=== PATIENT | male | born 1940 | race Caucasian/White ===

== ENCOUNTER 2016-07-13 18:17 | Observation (INO) | payer OTHER, BC ==
--- NOTE | 2016-07-13 18:04 | EDPHY ---
H & P Constitutional: Initial Vital Signs Temperature (C) 37.1 C 07/13/16 18:17 Heart Rate 65 07/13/16 18:17 Respiratory Rate 18 07/13/16 18:17 Blood Pressure 198/99 H 07/13/16 18:17 O2 Sat (%) 100 07/13/16 18:17 O2 Delivery Mode Room Air Allergies/Adverse Reactions: fluticasone propionate [From Flonase] Allergy (Intermediate, Verified 08/19/14 19:01) Rash vancomycin Allergy (Intermediate, Verified 08/19/14 19:01) Rash Home Medications: Medication Instructions Recorded Acetaminophen [Tylenol 325mg (*)] 650 mg PO HS PRN 04/26/14 Acetaminophen/Codeine 300/30Mg 1 each PO HS PRN 04/26/14 [Tylenol #3 (*)] Ascorbic Acid [Vitamin C 500 mg 2,000 mg PO DAILY 04/26/14 (*)] Budesonide 90 Mcg INH [Pulmicort 1 puffs IH DAILY 04/26/14 90 Mcg Flexhaler (*)] Budesonide [Rhinocort Aqua] 1 sprays EACHNARE DAILY 04/26/14 Cholecalciferol Vit D3 [Vitamin D3 2,000 units PO DAILY 04/26/14 (*)] Medical Decision Making ED Course/Re-evaluation: CHIEF COMPLAINT: Slurred speech, headache. HISTORY OF PRESENT ILLNESS: The patient is a 76-year-old male who presents after an episode of slurred speech that began at 1715. The episode lasted 20 minutes then resolved. He is still complaining of mild intermittent word- finding difficulty. He admits associated 6/10 headache that began after the episode of slurred speech. He is alert and oriented x 4. He has no history of similar symptoms. He denies numbness, weakness, paresthesias, or other complaints. He has no other complaints at this time. REVIEW OF SYSTEMS: A 10 point review of systems was performed and is negative with the exception of the elements mentioned in the history of present illness. PHYSICAL EXAM: HR, BP, O2 Sat, RR. Temp noted General Appearance: Alert, well hydrated, appropriate, and non-toxic appearing. Head: Atraumatic without scalp tenderness or obvious injury Eyes: Pupils equal, round, reactive to light and accommodation, EOMI, no trauma , no injection. Ears: Clear bilaterally, no perforation, normal landmarks Nose: Atraumatic, no rhinorrhea, clear. Throat: There is no erythema or exudates, no lesions, normal tonsils, mucus membranes moist. Neck: Supple, 2+ carotid upstroke, nontender, no lymphadenopathy. Respiratory: No retractions, no distress, no wheezes, and no accessory muscle use. Lungs are clear to auscultation bilaterally. Cardiovascular: Regular rate and rhythm, no murmurs, rubs, or gallops. Bilateral carotid, radial, dorsalis pedis, and posterior tibial pulses intact. Good capillary refill all extremities. Gastrointestinal: Abdomen is soft, nontender, non-distended, no masses, no rebound, no guarding, no peritoneal signs. Musculoskeletal: Normal active ROM of all extremities, atraumatic. Neurological: Alert, appropriate, and interactive. The patient has normal DTRs and non-focal cranial nerves, motor, sensory, and cerebellar exam. Skin: No rashes, good turgor, no nodules on palpation. Past medical history:Calcaneus fracture. Past surgical history: Family history:Non-contributory. Social history:Lives in [place]. DIAGNOSTICS/PROCEDURES/CRITICAL CARE TIME: Study: MRI of the: Brain Indication: Neurologic Results: No acute process. The study was read by the radiologist, Dr. Talbert. I viewed the images myself on the PACS system. The 12 lead EKG was interpreted by myself. See hard copy and/or "tracemaster" electronic copy for interpretation. Sinus rhythm, no ichemic changes. DIFFERENTIAL DIAGNOSIS: The differential diagnosis for the patient includes but MEDICAL DECISION MAKING: I met EMS on arrival and obtained a report from the sheriffs officer. This 76-year-old male had a 20-minute episode of slurred speech at 1715 today that was noticed by a friend. He has no ongoing slurred speech but still has occasional word- finding difficulty. All of these symptoms are unusual for him. We will obtain lab work and a brain MRI without contrast and EKG. 1829: Consulted with Dr. Muniz, hospitalist. He accepts admission. 2011: On return from US and MRI the patient has a large headache. 10mg IV Reglan administered for headache. Patient's blood pressure 200/105. 1inch nitro paste administered. 2042: Reassessed patient. He is now anxious and tachypneic. 1mg Ativan administered for anxiety. - Data Points Laboratory Results: Laboratory Results 07/13/16 18:20 07/13/16 18:20 Sodium 136 mEq/L mEq/L (134-144) Potassium 4.8 mEq/L mEq/L (3.5-5.2) Chloride 101 mEq/L mEq/L (97-110) Carbon Dioxide 25 mEq/l mEq/l (22-31) Anion Gap 10 mEq/L mEq/L (8-16) BUN 14 mg/dL mg/dL (7-23) Creatinine 0.9 mg/dL mg/dL (0.7-1.3) Estimated GFR > 60 Glucose 83 mg/dL mg/dL (70-100) Calcium 9.7 mg/dL mg/dL (8.5-10.4) Troponin I < 0.012 ng/mL ng/mL (0-0.034) Medications Given: Discontinued Medications Ketorolac Tromethamine (Toradol) 30 mg IVP EDNOW ONE Stop: 07/13/16 20:54 Last Admin: 07/13/16 21:03 Dose: 30 mg Lorazepam (Ativan Injection) 1 mg IVP EDNOW ONE Stop: 07/13/16 20:43 Last Admin: 07/13/16 20:53 Dose: 1 mg Metoclopramide HCl (Reglan Injection) 10 mg IVP EDNOW ONE Stop: 07/13/16 20:13 Last Admin: 07/13/16 20:27 Dose: 10 mg Nitroglycerin (Nitro-Bid 2%) 1 inch TP EDNOW ONE Stop: 07/13/16 20:22 Last Admin: 07/13/16 20:36 Dose: 1 inch Departure - Departure Disposition: [facility] Inpatient Acute Clinical Impression: TIA (transient ischemic attack) Qualifiers: Transient cerebral ischemia type: unspecified Qualified Code(s): G45.9 - Transient cerebral ischemic attack, unspecified Condition: Fair Report Scribed for: Sy Galarza Report Scribed by: Alessandro Robin Date of Report: 07/13/16 Time of Report: 18:21
--- NOTE | 2016-07-13 18:29 | CPEKG ---
Heart Rate: 63 RR Interval: 952 P-R Interval: 204 QRSD Interval: 90 QT Interval: 412 QTC Interval: 422 P Bruno: 62 QRS Bruno: 41 T Wave Bruno: 55 EKG Severity - NORMAL ECG - EKG Impression: SINUS RHYTHM Electronically Signed By: Sy Galarza 13-Jul-2016 22:11:09
[2016-07-13 18:48] LABS: ANION GAP 10 mEq/L (8-16); CALCIUM 9.7 mg/dL (8.5-10.4); CARBON DIOXIDE 25 mEq/l (22-31); CHLORIDE 101 mEq/L (97-110); CREATININE 0.9 mg/dL (0.7-1.3); GLOMERULAR FILTRATION RATE > 60; GLUCOSE 83 mg/dL (70-100); POTASSIUM 4.8 mEq/L (3.5-5.2); SODIUM 136 mEq/L (134-144)
[2016-07-13 18:48] LABS: % IMMATURE GRANULYOCYTES 0.2 % (0.0-1.1); ABSOLUTE IMMATURE GRANULOCYTES 0.02 10^3/uL (0.00-0.10); ADD DIFF? NO; ADD MORPH? NO; ADD SCAN? NO; ATYPICAL LYMPHOCYTE FLAG 10 (0-99); FRAGMENT RBC FLAG 0 (0-99); HEMATOCRIT 44.2 % (40.0-51.0); HEMOGLOBIN 15.3 g/dL (13.7-17.5); LEFT SHIFT FLG 0 (0-99); LIPEMIA HEMOLYSIS FLAG 90 (0-99); MEAN CELL HEMOGLOBIN 34.2 pg (27.9-34.1); MEAN CELL HEMOGLOBIN CONCENTR. 34.6 g/dL (32.4-36.7); MEAN CELL VOLUME 98.7 fL (81.5-99.8); MEAN PLATELET VOLUME 9.2 fL (8.7-11.7); PLATELET CLUMPS FLAG 50 (0-99); PLATELET COUNT 220 10^3/uL (150-400); RED BLOOD CELL COUNT 4.48 10^6/uL (4.40-6.38); RED CELL DISTRIBUTION WIDTH 12.8 % (11.5-15.2)
[2016-07-13 19:00] LABS: TROPONIN I < 0.012 ng/mL (0-0.034)
[2016-07-13 19:01] LABS: INR 1.05 (0.83-1.16); PROTIME(PATIENT) 13.6 SEC (12.0-15.0)
[2016-07-13] MEDS ORDERED: LABETALOL HCL 5 MG/ML 20 ML MDV IVP PRN (19:14)
[2016-07-13] MEDS ORDERED: ONDANSETRON 4 MG/2 ML VIAL IVP PRN (19:17)
[2016-07-13] MEDS ORDERED: oxyCODONE IR 5 MG TAB PO PRN (19:17)
[2016-07-13] MEDS ORDERED: PROMETHAZINE HCL 25 MG/ML INJ IVP PRN (19:17)
--- NOTE | 2016-07-13 19:36 | GHP ---
DATE OF ADMISSION: 07/13/2016 CHIEF COMPLAINT: Slurred speech. HISTORY OF PRESENT ILLNESS: This is a 76-year-old male who presented to the emergency department af ter his noticed that his speech was slurred at 5:15 today. The patient was talking to his frie nd on the phone when his speech became slurred, and it lasted for 10-15 minutes. His did not n otice any facial asymmetry or any other focal neurologic deficits such as weakness. Upon presenting to the emergency department, the patient states he feels much better but does have a headache which he describes as a sharp stabbing pain over his bilateral temples. He denies having a history of headaches. He denies any substance use prior to this incident today. The patient did see an orthopedic surgeon earlier today where he was diagnosed with a right calcanea l fracture and was placed in a walking boot. PAST MEDICAL HISTORY: 1. Asthma. 2. Sinus disease. PAST SURGICAL HISTORY: 1. Right total hip arthroplasty. 2. 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 HOME MEDICATIONS: Reviewed, refer to [email or web address] for details. ALLERGIES: Vancomycin and fluticasone. SOCIAL HISTORY: The patient lives in [place] with his . He denies any alcohol, tobacco or illi cit drug use. FAMILY HISTORY: Reviewed and noncontributory. REVIEW OF SYSTEMS: A comprehensive 10-point review of systems was done and is negative except for a s mentioned in the HPI. PHYSICAL EXAMINATION: VITAL SIGNS: Blood pressure 198/99, pulse of 65, respiratory rate 18, O2 sat 100% on room air. Temperature afebrile. GENERAL: No acute distress. HEAD: Normocephalic, atrau matic. Eyes are PERRLA. Sclerae anicteric. MOUTH: Moist mucous membranes. NECK: Supple. No ly mphadenopathy. CARDIOVASCULAR: S1-S2, no murmurs, rubs, clicks, gallops, or JVD. No lower extremi ty edema. No carotid bruits. PULMONARY: Lungs are clear. No wheezes, rales, or rhonchi. ABDOMEN : Soft, nontender, nondistended. No guarding or rebound tenderness. Normoactive bowel sounds. EX TREMITIES: No clubbing or cyanosis. NEURO: Cranial nerves 2-12 grossly intact. No focal motor or sensory deficits. There is no pronator drift. Speech is fluent. Tongue protrusion is midline. M uscle strength 5/5 bilateral upper extremity flexion, extension, and curriculum director strength. Muscle strength 5/5 in flexion extension at the hip. The patient is in a walking boot on the right. DIAGNOSTICS: WBC is 8.6, hemoglobin 15.3, hematocrit 44.2, platelets 220. Sodium 136, potassium 4. 8, chloride 101, CO2 25, BUN 14, creatinine 0.9, glucose 83. Troponin less than 0.012. EKG which I visualized and personally interpreted shows sinus rhythm, rate 63 beats per minute, no a cute ischemic changes. ASSESSMENT AND PLAN: This is a 76-year-old male presenting with: 1. Resolved slurred speech, possibly due to transient ischemic attack versus hypertensive encephalo radha. 2. Elevated blood pressure without a history of hypertension, concerning for hypertensive urgency. 3. Recently diagnosed right calcaneal fracture. PLAN: 1. Place on observation. 2. Will treat hypertension with 1 dose of IV labetalol, and will start a low dose of lisinopril. 3. TIA workup with echocardiogram and carotid Dopplers. 4. Stat noncontrast head CT to evaluate bleeding in the setting of headache and speech difficulties . 5. Neurology consultation interpretation for surgery. /[id number]/MODL
[2016-07-13] MEDS ORDERED: METOCLOPRAMIDE 10 MG/2 ML VIAL IVP ONE (20:12)
[2016-07-13] MEDS ORDERED: NITROGLYCERIN 2% 1 GM PACKET TP ONE (20:21)
[2016-07-13] MEDS ORDERED: LORazepam 2 MG/ML INJ IVP ONE (20:42)
[2016-07-13] MEDS ORDERED: LORazepam 2 MG/ML INJ ONE (20:43)
[2016-07-13] MEDS ORDERED: KETOROLAC 30 MG/1 ML SDV IVP ONE (20:53)
[2016-07-13] MEDS ORDERED: HYDROmorphONE/DILAUDID 2 MG/ML INJ IVP ONE (20:54)
[2016-07-13] MEDS ORDERED: ACETAMINOPHEN 325 MG TAB PO PRN (20:59)
[2016-07-13] MEDS ORDERED: ACETAMINOPHEN/CODEINE 300/30MG TAB PO PRN (20:59)
[2016-07-13] MEDS: LISINOPRIL 2.5 MG TAB PO SCH (22:29)
[2016-07-14] MEDS: ACETAMINOPHEN 325 MG TAB PO PRN ×3 (03:43→09:45)
[2016-07-14 06:08] LABS: CHOLESTEROL 152 mg/dL (140-220); CHOLESTEROL/HDL RATIO 3.71 RATIO (1.00-4.97); HIGH DENSITY LIPOPROTEIN 41 mg/dL (40-65); LDL/HDL RATIO 2.24 RATIO (1.00-3.64); LOW DENSITY LIPOPROTEIN 92 mg/dL (80-100); NON-HIGH DENSITY LIPOPROTEIN 111 mg/dL (90-129); TRIGLYCERIDE 98 mg/dL (40-150); VERY LOW DENSITY LIPOPROTEINS 19 mg/dL (8-25)
[2016-07-14 07:22] VITALS: BP 89/68; TEMP 98.4; O2SAT 94
[2016-07-14] MEDS ORDERED: BUDESONIDE EACHNARE SCH (09:00)
[2016-07-14] MEDS ORDERED: ASCORBIC ACID 500 MG TAB PO SCH (09:00)
[2016-07-14] MEDS ORDERED: CHOLECALCIFEROL VIT D3 2,000 UNITS TAB/CAP PO SCH (09:00)
[2016-07-14] MEDS ORDERED: BUDESONIDE 90 MCG MDI IH SCH (09:00)
[2016-07-14] MEDS: LISINOPRIL 2.5 MG TAB PO SCH ×2 (09:40→09:45)
[2016-07-14 10:04] VITALS: PULSE 75; RESP 16
--- NOTE | 2016-07-14 10:20 | PDCONSULT ---
[employer] Note: HOSPITAL NEUROLOGY CONSULT REQUESTING: Denzel Muniz DO REASON: speech disturbance HPI: This is a 76-year-old right-handed gentleman who presents for evaluation of speech disturbance. He is here with his who helps aid in the history. Yesterday evening, the patient was telephone a friend cancel some plans regarding a trip they were about to take. He had to cancel the trip due to a right foot fracture. Patient was not particularly aware of any disturbance, however, the patient's noted that the patient was having trouble getting words out, specifically, seems like he was having trouble remembering specific details about their upcoming trip. There was no slurring of the speech, word substitutions, telegraphic type speech, stuttering. He had no facial droop, extremity weakness, sensory loss, gait disturbance or visual disturbance. EMS was summoned and the patient was noted to have markedly elevated blood pressure with systolics in the 190s. He was also noting by temporal throbbing/ stabbing headache. He was brought to our emergency department where his blood pressure was treated and reduced. Since his admission, his has noted the patient has had difficulty remembering details of their trip. On our exam, the patient does have some periods where he pulses in. He states he can't think of the details of what he wants to say. There has been no indication of any garbled or nonsensical speech. He has no prior history of stroke or TIA. He does have a prior history of hyperlipidemia for which he was previously taking statins but this was discontinued recently. He has no history of hypertension or diabetes. No smoking. ROS: As per the HPI, otherwise a complete 12 point ROS was performed and is negative ALLERGIES AND MEDS: As recorded in the EMR - reviewed and reconciled PFSH: As per the intake H&P by Dr. Muniz from 07/13/16 EXAM: GEN: WDWN laying in NAD - RLE casting boot in place HEENT: NCAT, sclera anicteric, conjunctiva not injected, MMM, oropharynx clear, no scalp tenderness NECK: supple, nontender, no meningismus CV: RRR s1 s2 wo m/r/c/g. Carotid pulses 2+ wo bruit NEURO: MS: awake, alert, oriented to all spheres. Speech nondysarthric. No language disturbance. Follows commands. Attends to both sides. Recent/remote memory grossly intact. Mood euthymic. Good fund of knowledge. CN: pupils 3mm round and reactive. Fundi with sharp discs. VFF. Primary gaze centered. Full ocular motility. Facial sensation preserved. Face symmetric. Hearing grossly intact to finger rub. Palatoglossal movements intact. Shoulder shrug and head turn strong. MOTOR: normal bulk/tone. No adventitial movements. Full power throughout, with exception of right foot which could not be tested due to casting boot. SENSORY: intact to all modalities throughout. No extinction. COORD: no ataxia FN/HS. Aicha preserved. Romberg neg. REFLEX: left plantar down - did not test right due to foot casting boot. No clonus. DTRS 2/4. GAIT: Deferred to PT safety evaluation - RLE in casting boot with fracture DATA REVIEW: Labs reviewed in EMR PERSONALLY INTERPRETED RESULTS AND DATA: MRI brain without contrast shows some mild scattered punctate areas of periventricular and subcortical T2 FLAIR hyperintensities likely reflective of chronic microvascular ischemic change. No acute ischemic changes noted. Carotid Doppler shows trace left carotid bulb plaque, no significant hemodynamic stenosis IMPRESSION AND RECOMMENDATIONS: // EPISODIC MEMORY IMPAIRMENT // POSSIBLE HTN EMERGENCY Patient with abrupt onset episodic speech disturbance since yesterday which actually seems to be more difficulty recalling information then producing language. Given the headache, it could have been a more global cerebral dysfunction related to his markedly elevated blood pressures. However, there does remain a possibility that this is the 1st sign of a primary neurodegenerative process. There is no evidence of stroke on his MRI. I have a low suspicion for TIA. Regardless, given the severe hypertension and evidence of chronic microvascular ischemic changes on MRI, I would recommend institution of a daily aspirin 81 mg. Goal of normotension as managed by the primary team and long-term by his primary care provider. I do think he should go back on a statin given his previous history of hyperlipidemia which is being treated with statin medication and now given his hypertension/vascular risk. If he continues to have difficulty figuring out what he wants to say, i.e. thought production, he can follow up in Neurology Clinic for further evaluation.
--- NOTE | 2016-07-14 13:32 | HOSPPROG ---
Hospitalist Progress Note Assessment/Plan: Patient is a 76 y/o male who presented to the ER with slurred speech/ he was recently diagnosed w a right calcaneal fracture and is in a walking boot. Today is my first encounter with the patient, chart reviewed. *Slurred speech/poss more difficulty recalling information/ memory loss -no other focal deficits were noted -MRI shows no acute ischemic changes -doppler shows trace left carotid bulb plaque -neurology recommending an asa daily -patient had been on statin therapy in the past/ will resume -reviewed telemetry monitoring/ sinus rhythm -could have the beginnings of dementia/ states he has been having memory loss and is concerned *htn -now hypotensive/ started on lisinopril -reviewed his care with Dr Corcoran, his PCP/ patient has been consistently normotensive -will not dc on any medication *recent right calcanel fx/ walking boot -further f/u with ortho *alcohol use -drinks a few glasses of wine nightly -encouraged him to cut back *Plan: dc home after I evaluate echo and it is stable/ bp needs to be better prior to dc Subjective: Serafin has no complaints/feeling well. Objective: Vital Signs Temp Pulse Resp BP Pulse Ox 36.9 C 75 16 89/68 L 94 07/14/16 07:19 07/14/16 09:40 07/14/16 09:40 07/14/16 09:45 07/14/16 09:40 Laboratory Results 07/13/16 18:37 07/13/16 07/14/16 07/15/16 05:59 05:59 05:59 Intake Total 150 Balance 150 PT 13.6 SEC (12.0-15.0) 07/13/16 18:37 INR 1.05 (0.83-1.16) 07/13/16 18:37 - Physical Exam Constitutional: no apparent distress, appears nourished, not in pain Eyes: PERRL Ears, Nose, Mouth, Throat: hearing normal Cardiovascular: regular rate and rhythym Respiratory: no respiratory distress Gastrointestinal: normoactive bowel sounds Skin: warm, normal color Musculoskeletal: no muscle tenderness Neurologic: AAOx3, No facial droop Psychiatric: interacting appropriately, not anxious, not encephalopathic, thought process linear ICD10 Worksheet Patient Problems: Problems Problem Status Onset TIA (transient ischemic attack) Acute Cellulitis Acute Osteomyelitis of ankle and foot Acute
[2016-07-14] MEDS ORDERED: ATORVASTATIN CALCIUM 10 MG TAB PO SCH (14:00)
[2016-07-14 14:32] LABS: ALBUMIN 3.5 g/dL (3.5-5.0); BILIRUBIN,TOTAL 0.9 mg/dL (0.1-1.4); BILIRUBIN-CONJUGATED 0.3 mg/dL (0.0-0.5); BILIRUBIN-UNCONJUGATED 0.6 mg/dL (0.0-1.1); TOTAL PROTEIN 6.4 g/dL (6.3-8.2)
--- NOTE | 2016-07-14 15:41 | ECHO ---
[id number] + + [address] : : [place] [address] : : [phone] + + Adult Echocardiographic Report + + :Name: BRUCE MATHIS Tanisha Date: 07/14/2016 12:44 PM : : Hospital Admission Number: [id number] : :: 1940 Gender: Male Height: 70 in : :Age: 76 yrs Race: WH Weight: 180 lb : :Reason For Study: Eval for Embolic Source : : BSA: 2.0 meters2: :History: TIA : + + MMode/2D Measurements \T\ Calculations IVSd: 0.82 cm LVIDd: 4.2 cm FS: 35.3 % Ao root diam: 3.8 cm LVPWd: 1.1 cm LVIDs: 2.7 cm EDV(Teich): 78.0 ml ACS: 2.1 cm ESV(Teich): 27.3 ml EF(Teich): 65.0 % Normal Measurement Values: + + :LVIDd (3.5-5.7cm) IVSd (0.6-1.1cm) LVPWd (0.6-1.1cm) Aortic Root (2.0-3.7cm)Left Atrium (1.5-4.0cm): :LV Vol(d) (76-115ml) LV Vol(s) (29-48ml) Ejec Fraction (50-65%)PV Estrada (0.6- 1.2m/s) TV Estrada (0.4-1.0m/s) : :MV E Estrada (0.8-1.0m/s)MV A Estrada (0.3-1.0m/s)LVOT Estrada (0.7-1.2m/s) Asc Ao Estrada ( 0.9-1.8m/s) : + + Doppler Measurements \T\ Calculations MV E max estrada: Ao V2 max: LV V1 max: PA V2 max: 62.2 cm/sec 100.4 cm/sec 83.9 cm/sec 80.1 cm/sec MV A max estrada: Ao max P.0 mmHgLV V1 max PG: PA max P.2 cm/sec 2.8 mmHg 2.6 mmHg MV E/A: 0.97 TR max estrada: 226.7 cm/sec TR max P.6 mmHg RAP systole: 5.0 mmHg RVSP(TR): 25.6 mmHg Left Ventricle The left ventricle is normal in size. There is normal left ventricular wall thickness. The left ventricular ejection fraction is normal. There is Doppler evidence for diastolic dysfunction. Ejection Fraction = 65%. The left ventricular wall motion is normal. Right Ventricle The right ventricle is normal in size and function. Atria The left atrial size is normal. Right atrial size is normal. Mitral Valve The mitral valve is normal in structure and function. There is no mitral valve stenosis. There is no mitral regurgitation noted. Tricuspid Valve Normal tricuspid valve. There is trace tricuspid regurgitation. Right ventricular systolic pressure is normal. Aortic Valve The aortic valve is normal in structure and function. There is no aortic stenosis. Trace aortic regurgitation. Pulmonic Valve The pulmonic valve is normal in structure and function. There is no pulmonic valvular regurgitation. Great Vessels The aortic root is normal size. Pericardium/Pleural There is no pericardial effusion. Conclusion A complete two-dimensional transthoracic echocardiogram was performed (2D, M-mode, Doppler and color flow Doppler). The left ventricular ejection fraction is normal. There is Doppler evidence for diastolic dysfunction. Ejection Fraction = 65%. The left ventricular wall motion is normal. The right ventricle is normal in size and function. The mitral valve is normal in structure and function. There is trace tricuspid regurgitation. Right ventricular systolic pressure is normal. The aortic valve is normal in structure and function. There is no pericardial effusion. Trace aortic regurgitation. Final Reading Physician: Sreekanth Knapp signed on 07/14/2016 03:39 PM Ordering Physician: Denzel Muniz Performed By: Kit Burciaga, LEAHCS
--- NOTE | 2016-07-14 18:22 | GDS ---
DISCHARGE DIAGNOSES: 1. Memory loss, initially concern for slurred speech. 2. Hypertension, now hypotensive. 3. Recent right calcaneal fracture. 4. Alcohol use. CONSULTATIONS DURING HIS STAY: Dr. Flavio Banegas with Neurology. HISTORY: Briefly, the patient is a very nice 76-year-old male, who presented to the emergency room. His noticed that his speech was slurred, but in further discussion, his shared with me that the patient was having more difficulty with his memory and also had a headache. He presented the ER and felt much better, but did have a headache and at that time, he was significantly hypertensive. He was seen and evaluated by Neurology. Neurology noted he had an abrupt onset of episodic speech disturbance, which he noted was more difficulty recalling information than producing language. It could have been more global cerebral dysfunction related to his hypertension. There is no evidence of a stroke performed on the MRI. There is a low suspicion for a TIA. He had a carotid Doppler study performed, which showed trace right and minimal left carotid plaque without flow-limiting stenosis. An echocardiogram was performed, which showed an EF of 65%, Doppler evidence for diastolic dysfunction. 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 He has been in sinus rhythm during his stay. I also spoke with his primary care provider, Dr Corcoran. The patient and his will follow up with him for further evaluation. HOSPITAL COURSE PER PROBLEM: 1. Difficulty recalling information/memory loss. After talking with the , she is concerned he may have the beginnings of dementia. He has been having some ongoing memory loss. Neurology is recommending aspirin therapy, as well as a statin. Also spoke to Dr. Corcoran, who will follow up with him. Recommending out patient speech therapy. 2. Hypertension. He has been hypotensive after getting lisinopril. I spoke with Dr. Corcoran. His blood pressure has been consistently normotensive at his office visits. Have recommended the patient get a blood pressure cuff and monitor daily, and take these results with him at his next doctor's appointment. 3. Recent right calcaneal fracture. He is wearing a walking boot. 4. Alcohol use. He does not drink excessively. He has a few glasses of wine nightly. I encouraged him to cut back to see if this also helps with the symptoms. PENDING LABS AND TESTS: None. CONDITION AT DISCHARGE: Stable. Blood pressure is 101/68, heart rate is 75, respiratory rate is 16, O2 sats on room air are 94%. DISCHARGE INSTRUCTIONS: 1. Follow up with Neurology if he should have ongoing memory loss. 2. If he has any stroke-like symptoms, return to the ER. 3. Follow up with Dr. Corcoran. 4. Take aspirin and resume his statin therapy. /[id number]/MODL MTDD
== END 2016-07-14 17:11 | disposition home or self-care (01) ==
LOC: EDUNIT# → F3N 21:14
PROVIDERS: ADMIT Family Medicine; ATTEND Internal Medicine
DX: R41.3 Other amnesia (principal); I10 Essential (primary) hypertension; F10.99 Alcohol use, unspecified with unspecified alcohol-induced disorder; S92.001D Unspecified fracture of right calcaneus, subsequent encounter for fracture with routine healing
CPT/HCPCS: 70551; 92523; 93005; 93306; 93880; G0378; G9168; G9169; G9170; J1885; J2765

== ENCOUNTER → 2016-07-13 | Outpatient (CLI) | payer OTHER, BC | LOC: BMCIMAGING 14:22 | PROVIDERS: ATTEND Podiatrist Foot & Ankle Surgery | DX: M77.31 Calcaneal spur, right foot (principal); I25.10 Atherosclerotic heart disease of native coronary artery without angina pectoris ==

== ENCOUNTER → 2016-07-19 | Outpatient (CLI) | payer OTHER, BC | LOC: FIMAGING 14:13 | PROVIDERS: ATTEND Podiatrist Foot & Ankle Surgery | DX: M65.271 Calcific tendinitis, right ankle and foot (principal) ==

== ENCOUNTER → 2016-09-17 | Outpatient (CLI) | payer OTHER, BC | LOC: BMCIMAGING 09:35 | PROVIDERS: ATTEND Podiatrist Foot & Ankle Surgery | DX: S82.62XK Displaced fracture of lateral malleolus of left fibula, subsequent encounter for closed fracture with nonunion (principal); S92.351D Displaced fracture of fifth metatarsal bone, right foot, subsequent encounter for fracture with routine healing ==

== ENCOUNTER → 2016-10-15 | Outpatient (CLI) | payer OTHER, BC | LOC: BMCIMAGING 08:19 | PROVIDERS: ATTEND Podiatrist Foot & Ankle Surgery | DX: Z09 Encounter for follow-up examination after completed treatment for conditions other than malignant neoplasm (principal); S82.832D Other fracture of upper and lower end of left fibula, subsequent encounter for closed fracture with routine healing ==

== ENCOUNTER 2016-12-08 13:37 | Emergency (ER) | payer OTHER, BC ==
[2016-12-08 13:49] VITALS: RESP 16
[2016-12-08] MEDS ORDERED: TDAP ADULT 0.5 ML INJ (BOOSTRIX) IM ONE (15:30)
[2016-12-08] MEDS ORDERED: IBUPROFEN 600 MG TAB PO ONE (15:30)
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
[2016-12-08 18:12] VITALS: BP 121/80; PULSE 68; TEMP 97.9; O2SAT 97
== END 2016-12-08 18:12 | disposition home or self-care (01) ==
PROC: 0HQ1XZZ Repair Face Skin, External Approach (ICD-10-PCS; principal; 2016-12-08)
DX: S01.81XA Laceration without foreign body of other part of head, initial encounter (principal); S50.812A Abrasion of left forearm, initial encounter; S60.512A Abrasion of left hand, initial encounter; S50.811A Abrasion of right forearm, initial encounter; S80.212A Abrasion, left knee, initial encounter; S80.211A Abrasion, right knee, initial encounter; S70.311A Abrasion, right thigh, initial encounter; S50.11XA Contusion of right forearm, initial encounter; S50.12XA Contusion of left forearm, initial encounter; J45.909 Unspecified asthma, uncomplicated; Z79.82 Long term (current) use of aspirin; V18.0XXA Pedal cycle driver injured in noncollision transport accident in nontraffic accident, initial encounter; Y93.55 Activity, bike riding

== ENCOUNTER → 2018-06-02 | Outpatient (CLI) | payer OTHER, BC | LOC: BMCIMAGING 14:01 | PROVIDERS: ATTEND Podiatrist Foot & Ankle Surgery | DX: M79.671 Pain in right foot (principal); Z89.421 Acquired absence of other right toe(s); M15.1 Heberden's nodes (with arthropathy) ==